=== PATIENT | female | born 1955 | race Caucasian/White ===

== ENCOUNTER 2016-12-30 06:58 | Inpatient (IN) | payer OTHER ==
--- NOTE | 2016-12-23 22:06 | HP ---
PREOP HISTORY AND PHYSICAL: DATE OF SURGERY/ADMISSION: 12/30/16 PROCEDURE: Left total knee replacement. CHIEF COMPLAINT: Left knee pain. HISTORY OF PRESENT ILLNESS: Jade Alex is a 61-year-old female who has had a longstanding history of left knee pain due to severe end-stage left knee osteoarthritis. She has attempted conservative treatment including cortisone injections, physical therapy and has failed conservative treatment. She would like to proceed with a left total knee replacement. This is scheduled for 12/[address] Brownlee. PAST MEDICAL HISTORY: 1. Rheumatoid arthritis. 2. History of melanoma. PAST SURGICAL HISTORY: 1. Right knee arthroscopy. 2. Bilateral oophorectomy. MEDICATIONS: 1. Methotrexate. 2. Advil. 3. Folic acid. ALLERGIES: No known drug allergies. FAMILY HISTORY: Positive for cancer. 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 She admits to 8 glasses of wine per week. She denies tobacco or recreational drug use. REVIEW OF SYSTEMS: A complete 14-point review of systems was reviewed with the patient. It is positive for easy bruising and osteoarthritis. Otherwise, review of systems is negative. Specifically, no known anesthesia problems. Negative for history of DVT. Negative for MRSA, hepatitis C, or HIV. PHYSICAL EXAMINATION GENERAL: Well-developed, well-nourished 61-year-old female in no acute distress. VITAL SIGNS: Height is 63, weight 135 pounds. Blood pressure is 128/69, respirations 17, temperature is 97.4. BMI of 23.9. HEENT: Head is normocephalic, atraumatic. NECK: Supple with no palpable lymph nodes. PULMONARY: Lungs clear to auscultation bilaterally. No wheezes, rales, or rhonchi. CARDIO: Regular rate and rhythm. S1, S2. No murmurs, rubs, or gallops. No edema. ABDOMEN: Soft, nontender. Positive bowel sounds throughout. NEUROLOGICAL: Alert and oriented x3. Cranial nerves II through XII grossly intact. Sensation intact to light touch. MUSCULOSKELETAL: The patient's skin is intact. She has a moderate effusion of the left knee joint with tenderness to palpation along the medial and lateral joint lines. There is no varus or valgus instability. Range of motion is 10 to 120 degrees of flexion. Negative Michelle's distally. No varicosities or edema. No hyperreflexia. 5/5 ankle dorsiflexion and plantar flexion strength. Full sensation to light touch in all nerve distributions and 2+ pedal pulses. ASSESSMENT: A 61-year-old female with severe end-stage left knee osteoarthritis. PLAN: The patient is scheduled to undergo a left total knee replacement on 08/[address] Brownlee. She will return to the office 10 to 14 days postop for followup and suture removal. Prescriptions for Percocet, Coumadin, and Colace were e-scribed to the patient's pharmacy for postoperative pain management, postoperative DVT prophylaxis, and postoperative constipation. DAI SHAIKH [id number]/[facility] #: [id number] MTDD
[~2016-12-30 06:58] MED LIST: Dexamethasone IV* 4 MG/ML 1 ML (4 MG) IV SLOW PU ONE; Famotidine IV* 10 MG/ML 2 ML (20 mg) IV ONE
[2016-12-30] MEDS ORDERED: ceFAZolin 2 GM PREMIX(*) 2 GM/50 ML BAG IVPB ONE (07:20)
[2016-12-30] MEDS ORDERED: Dexamethasone IV* 4 MG/ML 1 ML (4 MG) ONE (07:20)
[2016-12-30] MEDS ORDERED: Famotidine IV* 10 MG/ML 2 ML (20 mg) ONE (07:20)
[2016-12-30] MEDS ORDERED: Buffered Lidocaine 1% SYRIN* 5 ML/SYR SYRINGE ONE (07:34)
[2016-12-30] MEDS ORDERED: Propofol* 10 MG/ML 20 ML BTL IV PUSH ONE (07:49)
[2016-12-30] MEDS ORDERED: Morphine PF AMP (0.5MG/ML)* 5 MG/10 ML AMP ONE (07:49)
[2016-12-30] MEDS ORDERED: Midazolam* 1 MG/ML 5 ML VIAL (5 MG) ONE ×2 (07:49→08:35)
[2016-12-30] MEDS ORDERED: Ondansetron INJ* 2 MG/ML VIAL ONE (07:49)
[2016-12-30] MEDS ORDERED: Bupivacaine 0.5% SDV PF* 30 ML VIAL ONE (07:49)
[2016-12-30] MEDS ORDERED: KETAMINE HCL* 50 MG/ML 10 ML VIAL ONE (07:49)
[2016-12-30] MEDS ORDERED: Phenylephrine IV* 40 MCG/ML 10 ML SYRINGE ONE (08:19)
[2016-12-30] MEDS ORDERED: DiMENhydriNATE IV* 50 MG/ML VIAL IV PUSH PRN (08:42)
[2016-12-30] MEDS ORDERED: Nalbuphine* 20 MG/ML 1 ML VIAL IV PRN ×2 (08:42)
[2016-12-30] MEDS ORDERED: Naloxone* 0.4 MG/ML 1 ML VIAL IV PRN (08:42)
[2016-12-30] MEDS ORDERED: oxyCODONE/Acetamin 5/325 MG* TAB PO PRN ×2 (08:42)
[2016-12-30] MEDS ORDERED: fentaNYL* 50 MCG/ML 2 ML VIAL (100 MCG VIAL) IV PRN (08:42)
[2016-12-30] MEDS ORDERED: Ondansetron INJ* 2 MG/ML VIAL IV PRN (08:42)
[2016-12-30] MEDS ORDERED: Ropivacaine* 300 MG in NS 0.9% 250 ML* 240 ML EPIDURAL SCH (09:00)
[2016-12-30] MEDS ORDERED: Scopolamine 1.5 mg* PATCH TRANSDERM SCH (09:00)
[2016-12-30] MEDS ORDERED: Phenylephrine INJ* 10 MG/ML 1 ML VIAL (10 MG) ONE (09:15)
[2016-12-30] MEDS ORDERED: Bisacodyl SUPP* 10 MG SUPP PR PRN (10:51)
[2016-12-30] MEDS ORDERED: Acetaminophen TAB* 325 MG PO PRN (10:51)
[2016-12-30] MEDS ORDERED: diPHENhydraMINE IV* 50 MG/ML 1 ml VIAL (BENADRYL) IV PRN (10:51)
[2016-12-30] MEDS ORDERED: Polyethylene Glycol 3350* 17 GM PACKET PO PRN (10:51)
--- NOTE | 2016-12-30 11:55 | RAD ---
HISTORY: Status post left knee arthroplasty COMPARISONS: August 20, 2016 VIEWS: 2, Frontal and lateral views of the left knee FINDINGS: BONE DENSITY: Normal. BONES: The patient is status post left knee arthroplasty. There is no hardware failure or osteolysis. JOINTS: The patient is status post left knee arthroplasty ALIGNMENT: There is no dislocation. SOFT TISSUES: Unremarkable. OTHER FINDINGS: None. IMPRESSION: STATUS POST LEFT KNEE ARTHROPLASTY
[2016-12-30] MEDS: ceFAZolin VIAL(*) 1 GM in NS 0.9% 50 ML* 50 ML IVPB SCH (16:27)
[2016-12-30] MEDS ORDERED: Warfarin TAB(*) 4 MG PO ONE (17:00)
[2016-12-30] MEDS: Docusate CAP* 100 MG PO SCH (22:02)
[2016-12-30] MEDS: Magnesium Hydroxide LIQ* 30 ML UDC PO SCH (22:03)
[2016-12-31] MEDS: ceFAZolin VIAL(*) 1 GM in NS 0.9% 50 ML* 50 ML IVPB SCH ×2 (00:17→08:11)
[2016-12-31] MEDS ORDERED: Ondansetron TAB* 4 MG PO PRN (06:00)
[2016-12-31] MEDS ORDERED: Temazepam CAP* 15 MG PO PRN (06:00)
[2016-12-31] MEDS ORDERED: oxyCODONE/Acetamin 5/325 MG* TAB PO PRN (06:00)
[2016-12-31] MEDS ORDERED: Ondansetron INJ* 2 MG/ML VIAL IV PRN (06:00)
[2016-12-31] MEDS ORDERED: Morphine INJ* 4 MG/ML 1 ML SYRINGE IV PRN (06:00)
[2016-12-31 06:24] LABS: Hematocrit 27 % (35-47); Hemoglobin 8.9 g/dl (12.0-16.0)
[2016-12-31 06:38] LABS: BUN/Creatinine Ratio 14.3 (8-20); Calcium 8.7 mg/dL (8.6-10.3); EGFR African American 109.4 (>60); EGFR Non-African American 85.1 (>60); Potassium 3.8 mmol/L (3.5-5.0)
--- NOTE | 2016-12-31 07:35 | PN ---
Progress Note - Progress Note SOAP: Subjective: Pt. is alert, pain is well controlled. Objective: LLE - drain removed, tip intact, 350 cc ss drainage. distally min edema with + df/pf, full sens lt, 2+ dp pulse. Vital Signs: Temp Pulse Resp BP Pulse Ox 98.5 F 66 16 91/43 99 12/31/16 04:06 12/31/16 04:06 12/31/16 05:26 12/31/16 04:06 12/31/16 04:06 Laboratory Results - last 24 hr 12/31/16 12/31/16 12/31/16 05:36 05:36 05:36 Hgb 8.9 L Hct 27 L INR (Anticoag Therapy) 0.88 L Sodium 139 Potassium 3.8 Chloride 103 Carbon Dioxide 30 Anion Gap 6 BUN 10 Creatinine 0.70 Est GFR ( Amer) 109.4 Est GFR (Non-Af Amer) 85.1 BUN/Creatinine Ratio 14.3 Glucose 102 H Calcium 8.7 Assessment: 61 yo F pod 1 s/p LTKA Plan: wbat lle pt/ot xrays satisfactory 8mg coumadin tonight, lovenox today plan d/c to home 01/01
--- NOTE | 2016-12-31 08:11 | OP ---
DATE OF OPERATION: 12/30/16 - ROOM #341 DATE OF : 55 SURGEON: Brenda Brownlee MD SENIOR SERVICE TECHNICIAN: DAI Newby. Jesus Easton did help throughout the procedure with preparation of the leg, wound retraction, manipulation of the leg , and wound closure. ANESTHESIOLOGIST: Dr. John Dias. ANESTHESIA: Spinal epidural. PRE-OP DIAGNOSIS: Severe end-stage degenerative osteoarthritis of the left knee joint. POST-OP DIAGNOSIS: Severe end-stage degenerative osteoarthritis of the left knee joint. OPERATIVE PROCEDURE: Left total knee arthroplasty. COMPLICATIONS: None. SPECIMEN: Bone and cartilage from the left knee joint sent to pathology. TOURNIQUET TIME: 45 minutes. ESTIMATED BLOOD LOSS: 200 cc. HARDWARE USED: This is [employer] total knee hardware. Two packages of Simplex bone cement. For the femur, a size 4 narrow left Oxinium femoral component. For the tibia, a size 3 tibial base plate. For the insert, a 9 mm posterior stabilized articular insert. For the patellar, a 29 mm 3-peg all- poly patella. INDICATIONS: Brief History/Indication: Ms. Alex is a 61-year-old female with osteoarthritis and rheumatoid arthritis. For years, she has had increasingly severe left knee pain. Radiographs confirmed [id number] arthritis of the left knee. She failed conservative treatment with antiinflammatories, pain medications, intraarticular injections, and physical therapy. She continued to have chronic severe pain and decreased quality of life. She elected to undergo a left total knee arthroplasty. Informed consent was obtained from the patient. She understands the risks of surgery include but are not limited to bleeding, infection, damage to nearby structures, continued pain, need for further surgery, intraoperative fracture, nerve palsy, hardware failure or loosening, knee stiffness, loss of motion, stroke, heart attack, blood clot, and . She wishes to proceed. FINDINGS: Intraoperative Findings: Intraoperatively, the patient was noted to have severe end-stage arthritis of the knee joint. Preop range of motion was 10 to 120 degrees of flexion. Postop range of motion with full extension to 130 degrees of flexion. Complete loss of cartilage in the medial and patellofemoral compartments. DESCRIPTION OF PROCEDURE: Ms. Alex was identified in the preanesthesia unit. Her left lower extremity was marked as the correct operative site. Informed consent was signed and placed in the chart. The patient was taken to the operating room and placed under spinal epidural anesthesia. A Huggins catheter was placed. Tourniquet was placed on the left thigh. The left lower extremity was prepped and draped in the usual sterile fashion. Preop time-out was made to correctly identify the patient side and site. Appropriate perioperative antibiotics were given within 1 hour of incision. Tourniquet was inflated and total tourniquet time for this procedure was 45 minutes. A 12-cm midline incision was made with a 10 blade and carried down to the extensor mechanism. A new 10 blade was used to make a standard medial parapatellar arthrotomy. The patellar was subluxed laterally. Electrocautery was used to subperiosteally elevate soft tissue off the superomedial tibia to the mid sagittal plane. The knee was flexed up. Anterior horn of the lateral meniscus and ACL were sharply released. A drill was used to enter the distal femur. Intramedullary distal femoral cutting guide was placed and pinned into position. 9 mm of distal femur were removed with an oscillating saw. The external rotation guide was pinned on the distal femur and the femur was sized to a size 4. A size 4 multi cutting jig was placed on the distal femur. Oscillating saw was used to make the appropriate chamfer cuts. The PCL was completely released. The tibia was subluxed anteriorly. Extramedullary tibial cutting guide was pinned on the proximal tibial. Oscillating saw was used to make the appropriate proximal tibial cut. The bone was carefully removed. Knee was brought out into full extension. The spacer block had good medial and lateral ligamentous balancing. There was full extension. Flexion and extension gaps were balanced. The knee was flexed up and lamina public health staff nurse was placed both medially and laterally. Any remaining meniscus was carefully removed with electrocautery. Any posterior osteo-phytes were carefully removed with a curved osteotome. Tibial tray and drop martin were placed and once again confirmed a satisfactory proximal tibial cut. Trial size 4 left narrow femoral component was impacted on to the distal femur and had excellent fit. The box for the posterior stabilized implant was prepared using a reamer and box cut osteotome. Trial 3 tibial tray and 9-mm insert trial were placed. The knee was taken through range of motion and noted to have full extension to 130 degrees of flexion. There was good patellofemoral tracking. Patellar was carefully everted. 9-mm of patellar bone and cartilage was carefully removed with an oscillating saw. The patellar was sized to a size 29. The 3-peg holes were drilled through the size 29 guide. The knee was taken through range of motion. Patellofemoral tracking was satisfactory. All trials were carefully removed. The tibia was subluxed anteriorly and sized to a size 3. Proximal tibia was prepared using a keel punch. All bony cut surfaces were copiously irrigated with sterile saline and dried. Final implants were cemented into place starting with the tibia, followed by the femur , and last the patella. A 9-mm insert trial was placed while the knee was brought out into full extension. Cement was allowed to fully cure and tourniquet was turned down at 45 minutes. The knee was copiously irrigated. Once the cement was fully cured, the insert trial was removed. Any excess cement was carefully removed from around the implant. Electrocautery was used to obtain meticulous hemostasis. A 9-mm insert trial was placed and locked into position on the tibial tray. Stability of the insert was checked and rechecked and noted to be stable. The knee was copiously irrigated with sterile saline. The extensor mechanism was reapproximated using interrupted #1 Vicryl's over a medium Hemovac drain. The rest of the incision was closed in a layered fashion using 0 and 2-0 Vicryls. Skin was closed using running 3-0 nylon suture. Sterile Xeroform, 4x4 's, and Webril were used to cover the incision. Azeem wrap and cold pack were placed over this. The patient's anesthesia was reversed without difficulty. She was taken to the PACU in stable condition. Intended weightbearing will be weightbearing as tolerated. Intended DVT prophylaxis will be Coumadin with a Lovenox bridge. [id number]/[facility] #: [id number] DEEPTI
[2016-12-31] MEDS: Docusate CAP* 100 MG PO SCH ×2 (08:12→20:50)
[2016-12-31] MEDS: Magnesium Hydroxide LIQ* 30 ML UDC PO SCH ×2 (08:13→20:50)
[2016-12-31] MEDS: Vitamin THERAPEUTIC TAB PO SCH (08:13)
[2016-12-31] MEDS: oxyCODONE/Acetamin 5/325 MG* TAB PO PRN ×4 (10:45→20:50)
[2016-12-31] MEDS: Enoxaparin(*) 30 MG/0.3 ML SYR SUBCUT SCH (12:16)
[2016-12-31] MEDS ORDERED: Warfarin TAB(*) 4 MG PO ONE (17:00)
[2017-01-01] MEDS: oxyCODONE/Acetamin 5/325 MG* TAB PO PRN ×3 (03:32→12:46)
[2017-01-01 06:35] LABS: Hematocrit 24 % (35-47); Hemoglobin 8.1 g/dl (12.0-16.0); Mean Platelet Volume 8 um3 (7.4-10.4)
[2017-01-01] MEDS: Docusate CAP* 100 MG PO SCH (08:14)
[2017-01-01] MEDS: Vitamin THERAPEUTIC TAB PO SCH (08:14)
[2017-01-01] MEDS: Magnesium Hydroxide LIQ* 30 ML UDC PO SCH (08:15)
--- NOTE | 2017-01-01 08:36 | PN ---
Progress Note - Progress Note SOAP: Subjective: Pt. is alert, reports pain is controlled and she would like to go home today. Objective: LLE - dressing changed, inc c/i with min ss drainage. distally nvi. Vital Signs: Temp Pulse Resp BP Pulse Ox 98.9 F 86 16 120/63 93 01/01/17 07:53 01/01/17 07:53 01/01/17 08:23 01/01/17 07:53 01/01/17 08:23 Laboratory Results - last 24 hr 01/01/17 01/01/17 06:13 06:14 Hgb 8.1 L Hct 24 L Plt Count 227 MPV 8 INR (Anticoag Therapy) 1.00 Assessment: 61 yo F pod 1 s/p LTKA Plan: wbat lle pt/ot lovenox dose this am, will d/c coumadin and do ecasa 325 mg bid for 1 month - discussed with patient plan d/c to home today with vns
[2017-01-01 11:36] VITALS: BP 137/65
[2017-01-01] MEDS: Enoxaparin(*) 30 MG/0.3 ML SYR SUBCUT SCH (12:17)
--- NOTE | 2017-01-02 03:51 | DS ---
DISCHARGE SUMMARY: DATE OF ADMISSION: 12/30/16 DATE OF DISCHARGE: 01/01/17 PROVIDER: Dr. Brenda Brownlee. (DICTATED BY DAI UREÑA) ADMITTING DIAGNOSIS: Status post left total knee arthroplasty for severe left knee osteoarthritis. SECONDARY DIAGNOSES: 1. Rheumatoid arthritis. 2. History of melanoma. CONSULTATION: Physical Therapy and Occupational Therapy. HISTORY OF PRESENT ILLNESS: Ms. Alex is a 61-year-old female, who presents to the clinic for ongoing left knee pain due to severe end-stage left knee osteoarthritis. She has failed conservative measures including cortisone injections and physical therapy. Therefore, she agreed to undergo a left total knee replacement with Dr. Brownlee on 12/30/16. HOSPITAL COURSE: The patient was admitted to [facility] on 12/30/16 and underwent a left total knee arthroplasty. Postoperatively, she recovered on the short-stay surgical unit. Postop day 1, Huggins was removed and she was able to urinate on her own. She was advanced to regular diet without difficulty. Pain was controlled with oral Percocet and she was restarted on home medications. Labs and vitals remained stable. She was able to weight bear as tolerated on the left lower extremity. She advanced appropriately with physical therapy and occupational therapy. DVT prophylaxis was managed with Lovenox and Coumadin. She did not reach her therapeutic INR. Therefore, DVT prophylaxis was switched to aspirin 325 twice a day. The Coumadin and Lovenox were discontinued. By postop day 2, she was orthopedically and medically stable for discharge to home with VNS services. PHYSICAL EXAMINATION: General: A well-developed, well-nourished, 61-year-old female in no acute distress. Alert and oriented x3, appropriate mood and affect. Vitals: Temp 98.9, pulse 86, respiratory rate 16, blood pressure 120/63 , pulse ox 93%. Left lower extremity: The dressing was changed and the incision was clean and dry with minimal drainage and no signs of infection. She was able to plantar flex and dorsiflex the ankle. +2 dorsalis pedis pulse. Sensation intact to light touch distally. DISCHARGE CONDITION: Stable. DISCHARGE MEDICATIONS: Home medications continued on discharge to include: 1. Methotrexate 2.5 mg tabs 20 mg by mouth every 7 days. 2. Ibuprofen 200 mg by mouth daily as needed. The patient was instructed not to take this while on Coumadin. 3. Folic acid 1 mg tab every morning. 4. [id number] Tylenol 500 mg 1 to 2 tabs as needed for pain. The patient was instructed not to take this with Percocet. New medications on discharge to include: 1. Colace 100 mg cap p.o. 2 to 3 times a day for constipation. 2. Percocet 5/325 one to two tabs every 4 to 6 hours as needed for pain. 3. Aspirin 325 mg 1 tab by mouth twice a day. DISCHARGE INSTRUCTIONS: The patient is weightbearing as tolerated on the left lower extremity. Three days after surgery, it is okay for her to shower. No bathing, swimming, or submerging the wound in water. She should redress the knee with gauze and an Azeem wrap. She should call the orthopedic office if she notes increased drainage, redness, increased pain or fever, or go to the ER with shortness of breath or chest pain and she is on a regular diet with increased fluids and fiber to prevent constipation. She should continue to use Colace for constipation. If she would not have the bowel movement in 48 hours, she should call the office. She will continue physical therapy at home. Visiting nurses to do wound check. The Coumadin was discontinued. The patient will be on aspirin 325 mg twice a day for 1 month for DVT prophylaxis. She should continue Percocet as needed for the pain. The patient was instructed not to take ibuprofen while on aspirin and not to take Tylenol or Percocet. Antibiotics will be required prior to any dental work. The patient will follow up with Dr. Brownlee in 10 to 14 days for x- rays and suture removal. DAI UREÑA [id number]/[facility] #: [id number] DEEPTI
[2017-01-02] MEDS ORDERED: Scopolomine PATCH Remove* 1 NOTE MISC PATCH OFF ONE (08:47)
== END 2017-01-01 13:00 | disposition home health service (06) | DRG 470 ==
LOC: AA 06:58 → SSU 13:46
PROVIDERS: ADMIT Orthopaedic Surgery Adult Reconstructive Orthopaedic Surgery; ATTEND Orthopaedic Surgery Adult Reconstructive Orthopaedic Surgery
PROC: 0SRD0J9 Replacement of Left Knee Joint with Synthetic Substitute, Cemented, Open Approach (ICD-10-PCS; principal; 2016-12-30 08:15)
DX: M17.12 Unilateral primary osteoarthritis, left knee (principal); M06.9 Rheumatoid arthritis, unspecified; Z85.820 Personal history of malignant melanoma of skin; Z90.722 Acquired absence of ovaries, bilateral; Z80.9 Family history of malignant neoplasm, unspecified; Z79.82 Long term (current) use of aspirin
CPT/HCPCS: 36415; 62327; 80048; 85014; 85018; 85049; 85610; A9270-GY; C1776; J0690; J1100; J1650; J2250; J2405; J2704; J2795